=== PATIENT | female | born 1960 | race Caucasian/White ===

== ENCOUNTER 2016-08-28 12:06 | Emergency (ER) | payer BC ==
[~2016-08-28 12:06] MED LIST: *UNABLE2; *UNABLE3; ACCUNEB INH; ADVAIR INH; ADVAIR250 INH; ADVIL PO; ALBUTEROL5 INH; ASAB PO; AUG875 PO; BACDS PO; BACLOFEN20 MG PO; BUDESONIDE INH; BUSPAR15 M1 PO; CENTRUM PO; COZ50 PO; CYMBALTA60 PO; DEPAKOTEER PO; DSS PO; DUONEB INH; ENDOCET1 TA3 PO; FERRETTS325 MG PO; FLORASTOR250 MG PO; GOODY'S EX-STR1 EAC1 PO; GOODYS PM1 POW PO; GRALISE600 MG PO; HABIT21 TOP; INHALER RX; INTERFERON SC; KDUR10 PO; KDUR20 PO; KLOR-CON 1010 MEQ PO; KLOR-CON M2020 MEQ PO; L20 PO; LASIX; LEVAQUIN750 MG PO; LIOR10 PO; LIPITOR40 PO; LISINOPRIL40 MG PO; LOP25 PO; LORT7 PO; LOTE20 PO; LOTENSIN; LYRICA150 MG PO; LYRICA300 MG PO; MEDROL; MELA3 PO; METHYLPREDNISOLONE; MIRALAXPKT PO; MONODOX100 MG PO; MSCONT15 PO; MUCINEX600 MG PO; MVI PO; NEUR300 PO; NEUR800 PO; NEXIUM40 PO; NICODERM C14 MG/24 H TOP; NICODERM C21 MG/241 TOP; NITROSTAT0.4 MG SL; NORCO1 TA2 PO; NORV10 PO; NORV5 PO; OXYCOD PO; OXYIR5 MG PO; P10 PO; P20 PO; PCET PO; PERCOCET1 TA4 PO; PERCOCET1 TA5 PO; PLAVIX PO; POTASSIUM; POTASSIUM PO; PRILOSEC40 MG PO; PRIN10 PO; PRIN20 PO; PRISTIQ50 MG PO; PROAIR HFA INH; PROTONIX PO; PROVENTSOL INH; PROVHFA INH; PROVHFA PO; PROZAC PO; PROZAC40 MG PO; PULRESP.5 INH; REBI1 SC; REBIF; SEROQUEL50 MG PO; SPIRIVA INH; STERAPDS12 PO; SYMBICORT 160/41 INH INH; T200 PO; TRILEP150 PO; TRILEP300 PO; TYLENOL ARTH650 MG PO; V5 PO; VALIUM10 MG PO; VITAMIN K; VITAMIN K IM; VITD PO; VOLTAREN1 % TOP; ZANTAC 150 PO; ZITH250 PO; ZOCOR20 PO
[2016-08-28 12:19] LABS: ALLENS TEST Pos; BE (BASE EXCESS) 2.7 MEQ/L (0 +/- 2.5); CARBOXYHEMOGLOBIN 4.6 % (0-3); DEVICE NC; HCO3 (ACTUAL BICARBONATE) 20.5 MEQ/L (23-27); HEMOBLOGIN CONTENT 15.1 G/DL (12-16); INSTRUMENT SERIAL # 8087; METHEMOGLOBIN 0.1 % (0-3); PCO2 (CO2 TENSION) 19 MMHG (35-45); PO2 (O2 TENSION) 94 MMHG (79-93); SAMPLE Arterial; pH 7.66 (7.37-7.43)
[2016-08-28 12:32] LABS: BASOPHILS 0.5 %; BASOPHILS ABSOLUTE 0.04 10/3/uL (0.0-0.16); EOSINOPHILS 1.6 %; EOSINOPHILS ABSOLUTE 0.12 10/3/uL (0.0-0.53); ER CBC TAT 0 Hrs 03 Mins; HEMOGLOBIN 14.4 g/dL (12.0-16.0); IMMATURE GRANULOCYTES 0.3 %; IMMATURE GRANULOCYTES ABSOLUTE 0.02 10/3/uL (0.0-0.11); LYMPHOCYTES 17.7 %; LYMPHOCYTES ABSOLUTE 1.29 10/3/uL (0.67-4.30); MEAN CORPUS HGB CONC 33.1 g/dL (32.0-36.0); MEAN CORPUSCULAR HEMOGLOB 27.7 pg (26.0-34.0); MEAN CORPUSCULAR VOLUME 83.8 fL (80-100); MEAN PLATELET VOLUME 9.7 fL (9.2-13.0); MONOCYTES 4.9 %; MONOCYTES ABSOLUTE 0.36 10/3/uL (0.21-1.20); NEUTROPHILS ABSOLUTE 5.46 10/3/uL (2.02-8.40); PLATELET COUNT 297 10/3/uL (150-400); RBC DISTRIBUTION WIDTH 18.1 % (12.0-16.0); RED CELL COUNT 5.19 10/6/uL (4.0-5.6); WHITE BLOOD CELLS 7.3 10/3/uL (4.5-10.5)
[2016-08-28 12:33] LABS: HEMATOCRIT 43.5 % (36.0-48.0); MANUAL DIFF NO %
[2016-08-28 12:48] LABS: A/G RATIO 0.7 (0.7-1.9); ALBUMIN 3.1 G/DL (3.5-5.0); ALKALINE PHOSPHATASE 131 U/L (45-117); CALCIUM, SERUM 8.8 MG/DL (8.5-10.4); CHLORIDE, SERUM 104 MMOL/L (96-112); CREATININE 0.61 MG/DL (0.55-1.02); GFR AFRICAN AMERICAN 117 ML/MIN (>=60); GFR NON AFRICAN AMERICAN 101 ML/MIN (>=60); GLOBULIN 4.7 G/DL (2.5-4.1); POTASSIUM, SERUM 3.5 MMOL/L (3.5-5.3); SGOT(AST) 18 U/L (5-40); SGPT(ALT) 15 U/L (5-65); SODIUM, SERUM 141 MMOL/L (135-148); TOTAL BILIRUBIN 0.4 MG/DL (0-1.2); TOTAL PROTEIN 7.8 G/DL (6.0-8.5)
[2016-08-28 12:51] LABS: BUN (BLOOD UREA NITROGEN) 6 MG/DL (6-23); CO2 (CARBON DIOXIDE) 22 MMOL/L (24-34); GLUCOSE, SERUM 120 MG/DL (60-99)
[2016-08-28 13:13] LABS: LACTATE 3.7 MMOL/L (0.3-2.4)
[2016-08-28 13:16] LABS: PROCALCITONIN <0.05 ng/mL (<0.5)
[2016-08-28 13:18] LABS: INFLUENZA A SCREEN NEGATIVE (NEGATIVE); INFLUENZA B SCREEN NEGATIVE (NEGATIVE)
[2017-01-19] MEDS ORDERED: VALIUM10 MG PO (09:04)
[2017-01-19] MEDS ORDERED: LEVAQUIN750 MG PO (09:05)
[2017-03-03] MEDS ORDERED: MSCONT15 PO (15:52)
[2017-03-03] MEDS ORDERED: OXYCOD PO (15:53)
[2017-03-03] MEDS ORDERED: V5 PO (15:53)
[2017-03-03] MEDS ORDERED: SINGULAIR1 PO (15:54)
[2017-03-03] MEDS ORDERED: NEUR800 PO (15:54)
[2017-03-03] MEDS ORDERED: LIPITOR40 PO (15:54)
[2017-03-03] MEDS ORDERED: HALF81 PO (15:54)
[2017-03-03] MEDS ORDERED: PROZAC40 MG PO (15:55)
[2017-03-03] MEDS ORDERED: BACDS PO (15:55)
[2017-03-03] MEDS ORDERED: P10 PO (15:55)
[2017-03-03] MEDS ORDERED: PLAVIX PO (15:56)
== END 2016-08-28 15:25 | disposition home or self-care (01) ==
LOC: ER 12:06
PROVIDERS: Hospitalist
DX: F41.0 Panic disorder [episodic paroxysmal anxiety] (principal); I11.0 Hypertensive heart disease with heart failure; I50.9 Heart failure, unspecified; I25.2 Old myocardial infarction; J44.9 Chronic obstructive pulmonary disease, unspecified; F32.9 Major depressive disorder, single episode, unspecified; F41.9 Anxiety disorder, unspecified; D64.9 Anemia, unspecified; F17.200 Nicotine dependence, unspecified, uncomplicated; Z88.8 Allergy status to other drugs, medicaments and biological substances; Z88.5 Allergy status to narcotic agent; Z79.82 Long term (current) use of aspirin; Z79.899 Other long term (current) drug therapy
CPT/HCPCS: 36600; 71010; 80053; 82805; 83605; 84145; 85025; 87040; 87070; 87205; 87804; 93005; 94640; 96372; 96374; 99285; A9270-GY; J2930; J3410

== ENCOUNTER 2016-11-04 10:27 | Emergency (ER) | payer BC ==
[2016-11-04 10:07] LABS: BE (BASE EXCESS) 1.7 MEQ/L (0 +/- 2.5); CARBOXYHEMOGLOBIN 1.7 % (0-3); HCO3 (ACTUAL BICARBONATE) 21.3 MEQ/L (23-27); HEMOBLOGIN CONTENT 14.4 G/DL (12-16); INSTRUMENT SERIAL # 8087; METHEMOGLOBIN 0.2 % (0-3); O2 CONTENT 19.6 VOL% (18-24); PCO2 (CO2 TENSION) 22 MMHG (35-45); PO2 (O2 TENSION) 93 MMHG (79-93); SAMPLE Arterial
[2016-11-04 10:08] LABS: ALLENS TEST Pos; DEVICE NC
[2016-11-04 10:27] LABS: BASOPHILS 0.5 %; BASOPHILS ABSOLUTE 0.03 10/3/uL (0.0-0.16); EOSINOPHILS 1.6 %; ER CBC TAT 0 Hrs 07 Mins; HEMATOCRIT 41.4 % (36.0-48.0); IMMATURE GRANULOCYTES 0.5 %; IMMATURE GRANULOCYTES ABSOLUTE 0.03 10/3/uL (0.0-0.11); LYMPHOCYTES 13.1 %; LYMPHOCYTES ABSOLUTE 0.84 10/3/uL (0.67-4.30); MANUAL DIFF NO %; MEAN CORPUS HGB CONC 33.8 g/dL (32.0-36.0); MEAN CORPUSCULAR HEMOGLOB 29.4 pg (26.0-34.0); MEAN PLATELET VOLUME 10.2 fL (9.2-13.0); MONOCYTES 6.1 %; MONOCYTES ABSOLUTE 0.39 10/3/uL (0.21-1.20); NEUTROPHILS 78.2 %; NEUTROPHILS ABSOLUTE 5.01 10/3/uL (2.02-8.40); PLATELET COUNT 272 10/3/uL (150-400); RBC DISTRIBUTION WIDTH 14.5 % (12.0-16.0); RED CELL COUNT 4.76 10/6/uL (4.0-5.6); WHITE BLOOD CELLS 6.4 10/3/uL (4.5-10.5)
[2016-11-04 10:58] LABS: BUN (BLOOD UREA NITROGEN) 9 MG/DL (6-23); CALCIUM, SERUM 9.3 MG/DL (8.5-10.4); CHLORIDE, SERUM 107 MMOL/L (96-112); CO2 (CARBON DIOXIDE) 29 MMOL/L (24-34); CREATININE 0.53 MG/DL (0.55-1.02); GFR AFRICAN AMERICAN 122 ML/MIN (>=60); GFR NON AFRICAN AMERICAN 105 ML/MIN (>=60); GLUCOSE, SERUM 122 MG/DL (60-99); POTASSIUM, SERUM 3.8 MMOL/L (3.5-5.3); SODIUM, SERUM 142 MMOL/L (135-148)
[2017-01-19] MEDS ORDERED: VALIUM10 MG PO (09:04)
[2017-01-19] MEDS ORDERED: LEVAQUIN750 MG PO (09:05)
[2017-03-03] MEDS ORDERED: MSCONT15 PO (15:52)
[2017-03-03] MEDS ORDERED: V5 PO (15:53)
[2017-03-03] MEDS ORDERED: OXYCOD PO (15:53)
[2017-03-03] MEDS ORDERED: SINGULAIR1 PO (15:54)
[2017-03-03] MEDS ORDERED: HALF81 PO (15:54)
[2017-03-03] MEDS ORDERED: LIPITOR40 PO (15:54)
[2017-03-03] MEDS ORDERED: NEUR800 PO (15:54)
[2017-03-03] MEDS ORDERED: BACDS PO (15:55)
[2017-03-03] MEDS ORDERED: P10 PO (15:55)
[2017-03-03] MEDS ORDERED: PROZAC40 MG PO (15:55)
[2017-03-03] MEDS ORDERED: PLAVIX PO (15:56)
== END 2016-11-04 11:40 | disposition home or self-care (01) ==
LOC: ER 10:27
PROVIDERS: Emergency Medicine
DX: F41.9 Anxiety disorder, unspecified (principal); D64.9 Anemia, unspecified; J44.9 Chronic obstructive pulmonary disease, unspecified; Z86.73 Personal history of transient ischemic attack (TIA), and cerebral infarction without residual deficits; Z95.0 Presence of cardiac pacemaker; Z88.5 Allergy status to narcotic agent; Z79.82 Long term (current) use of aspirin
CPT/HCPCS: 36600; 71010; 80048; 82805; 85025; 93005; 94640; 96374; 99284; J2550

== ENCOUNTER 2016-11-13 19:45 | Emergency (ER) | payer BC ==
[2017-01-19] MEDS ORDERED: VALIUM10 MG PO (09:04)
[2017-01-19] MEDS ORDERED: LEVAQUIN750 MG PO (09:05)
[2017-03-03] MEDS ORDERED: MSCONT15 PO (15:52)
[2017-03-03] MEDS ORDERED: OXYCOD PO (15:53)
[2017-03-03] MEDS ORDERED: V5 PO (15:53)
[2017-03-03] MEDS ORDERED: NEUR800 PO (15:54)
[2017-03-03] MEDS ORDERED: HALF81 PO (15:54)
[2017-03-03] MEDS ORDERED: SINGULAIR1 PO (15:54)
[2017-03-03] MEDS ORDERED: LIPITOR40 PO (15:54)
[2017-03-03] MEDS ORDERED: PROZAC40 MG PO (15:55)
[2017-03-03] MEDS ORDERED: BACDS PO (15:55)
[2017-03-03] MEDS ORDERED: P10 PO (15:55)
[2017-03-03] MEDS ORDERED: PLAVIX PO (15:56)
== END 2016-11-13 19:58 | disposition home or self-care (01) ==
LOC: ER 19:45
PROC: 2W3QX1Z Immobilization of Right Lower Leg using Splint (ICD-10-PCS; principal; 2016-11-13)
DX: S82.51XA Displaced fracture of medial malleolus of right tibia, initial encounter for closed fracture (principal); I10 Essential (primary) hypertension; J44.9 Chronic obstructive pulmonary disease, unspecified; G35 Multiple sclerosis; M81.0 Age-related osteoporosis without current pathological fracture; Z87.891 Personal history of nicotine dependence; Z88.5 Allergy status to narcotic agent; Z88.8 Allergy status to other drugs, medicaments and biological substances; Z79.82 Long term (current) use of aspirin; Z79.899 Other long term (current) drug therapy; X58.XXXA Exposure to other specified factors, initial encounter
CPT/HCPCS: 73610-RT; 99283

== ENCOUNTER 2016-11-20 20:56 | Inpatient (IN) | payer BC ==
--- NOTE | ~2016-11-20 | IDS ---
Interim Discharge Summary [facility] [address] [place]. [address] NAME: KEYLA KOROMA : 58 STATUS : ADM IN [facility]#: [id number] AGE: 56 ADM/REG DATE : 11/20/16 MR#: [id number] REPORT SERV DATE: 11/26/16 DICTATED BY: KENAN TERRAZAS DATE: 11/26/16 REPORT STATUS : Draft TRANSCRIBED BY: MODL DATE: 11/26/16 ADMISSION DATE: 11/20/2016 DISCHARGE DATE: DATE OF SUMMARY: 11/26/2016. The patient has severe COPD, acute respiratory failure, hypertension, chronic pain syndrome, polysubstance, history of conversion disorder in the past, diastolic heart failure, non STEMI in 2016, and drug-eluting stent to the RCA. She has had bradycardia with subsequent pacemaker placement. Previous DVT, von Willebrand disease on aspirin and Plavix. Currently, she is off the ventilator. Awake, alert , and responsive. Prednisone is now on 20. Her H and H are 11.8 and 36.7, white count is 9400, platelet count 231,000, sodium 139, potassium 4.2, chloride 102, CO2 of 34, BUN 17, creatinine 0.3, and glucose 88. MEDICATIONS: Plavix, Colace, Lovenox subcu, Prozac, Neurontin, Lopressor 25, MS Contin 15 p.o. b.i.d., oxycodone 10 mg p.o. q.6, Protonix 40, Deltasone 20. She is also on aspirin 81. ALLERGIES: SHE IS ALLERGIC TO CODEINE, LAMICTAL, ADVERSE DRUG REACTIONS FROM LORAZEPAM AND CLONAZEPAM. IRLANDA/DAVID Kenan Terrazas M.D. / [id number] CC: Susana Tan M.D.
--- NOTE | ~2016-11-20 | DS ---
Discharge Summary [id number] [place]. [address] NAME: KEYLA KOROMA : 58 STATUS : DIS IN PAT#: [id number] AGE: 56 ADM/REG DATE : 11/20/16 MR#: [id number] REPORT SERV DATE: 12/01/16 DICTATED BY: QAUILES SALCIDO DATE: 11/30/16 REPORT STATUS : Draft TRANSCRIBED BY: MODL DATE: 11/30/16 ADMISSION DATE: 11/20/2016 DISCHARGE DATE: 11/27/2016 DISCHARGE DIAGNOSES: 1. Acute respiratory failure. 2. Severe chronic obstructive pulmonary disease, chronic O2 from 5 L at baseline. The patient was actually weaned down to 3 L at time of discharge. 3. Hypertension. 4. Diastolic heart failure, chronic. 5. Chronic pain dependence and use. DISCHARGE MEDICATIONS: 1. Aspirin 81 mg one tab p.o. daily. 2. Atorvastatin 40 mg one tab p.o. at bedtime. 3. Plavix 75 mg one tab p.o. daily. 4. Cyiv-oqd-rlkrobk Colace 100 mg one tab p.o. b.i.d. 5. Prozac 40 mg one tab p.o. b.i.d. 6. Gabapentin 800 mg one tab p.o. t.i.d. 7. The patient's home morphine, MS Contin 15 mg one tab p.o. q.12 hours. 8. Metoprolol 25 mg one tab p.o. b.i.d. 9. Roxicodone 10 mg one tab p.o. four times a day home dose. 10.Prednisone 20 mg one tab p.o. x3 days, then return to home dose of 10 mg. 11.Pulmicort 0.5 mg inhalation b.i.d. 12.Atrovent one nebulized inhalation four times a day. HOSPITAL COURSE: Please see H and P for complete details of HPI. Additionally, see interim course by Dr. Terrazas for ICU course. The patient was transferred out of ICU on 11/26/2016 and seen by this telegraphic typewriter repairer on 11/27/2016, for resumption of care after which time patient prompt requesting her discharge. Repeat chest x-ray showed improving CHF changes. Clinically, the patient reported that she felt significantly better, was actually on improved O2 saturations and previously at home. The patient does have a long history of severe COPD, acute respiratory failure, hypertension, chronic pain and polysubstance abuse with history of conversion disorder, diastolic heart failure, prior DVT with von Willebrand's disease, who presented in respiratory failure requiring mechanical intubation with mechanical ventilator support. The patient was able to be given respiratory rest with improvement in respiratory status with multiple issues of COPD, CHF, and polypharmacy at home. The patient did have continued improvement and was feeling actually better than her baseline by time of discharge. However, due to her recent leg injury which she keeps leg in boot, she was requesting to go home to be with her family. Hospital course was discussed with the patient, who understands and reports that she will follow up with PCP for additional requirements in one week for BMP and chest x-ray. She additionally will follow with Dr. Rivera in two months, as he has seen the patient inpatient and would like to establish care with Dr. Rivera. Discharge Summary [address] [address] NAME: KEYLA KOROMA : 58 STATUS : DIS IN PAT#: [id number] AGE: 56 ADM/REG DATE : 11/20/16 MR#: [id number] REPORT SERV DATE: 12/01/16 DICTATED BY: AQUILES SALCIDO DATE: 11/30/16 REPORT STATUS : Draft TRANSCRIBED BY: DAVID DATE: 11/30/16 DICTATED BY: MD LA NENA Anderson/DAVID Aquiles Salcido MD / [id number] CC: MD Ines Anderson M.D.
--- NOTE | ~2016-11-20 | IDS ---
Interim Discharge Summary [facility] [address] [place]. [address] NAME: KEYLA KOROMA : 58 STATUS : ADM IN [facility]#: [id number] AGE: 56 ADM/REG DATE : 11/20/16 MR#: [id number] REPORT SERV DATE: 11/26/16 DICTATED BY: KENAN TERRAZAS DATE: 11/26/16 REPORT STATUS : Draft TRANSCRIBED BY: MODL DATE: 11/26/16 ADMISSION DATE: 11/20/2016 DISCHARGE DATE: Date of discharge from the ICU 11/26/2016. DISCHARGE DIAGNOSES: 1. Acute on chronic respiratory failure. 2. Chronic obstructive pulmonary disease on chronic oxygen therapy. 3. Obstructive sleep apnea. 4. Previous history of bradycardia requiring pacemaker. 5. Non-ST elevation myocardial infarction in June 2016 with drug-eluting stent. 6. Migraines. 7. Restless legs syndrome. I note that she had required intubation and mechanical ventilation and was able to wean off mechanical ventilator. Troponins are normal this time. She continued to have chronic pain syndrome, diastolic CHF, and severe COPD. LABORATORY DATA: Laboratory values show an H and H of 11.8 and 36.7. White count 9400, platelet count 231,000. Electrolytes are normal. Chest x-ray was improved. PLAN: Continue her present therapies. Swallow study to be done. CURRENT MEDICATIONS: Aspirin 81 mg p.o. daily, Catapres patch 0.2 mg q.7 days, Plavix 75 mg p.o. daily, Colace 100 mg p.o. daily, Lovenox subcu 40 mg subcu every 24 hours, Prozac 40 mg p.o. b.i.d., Neurontin 800 mg p.o. q.8 hours, level 2 NovoLog injection, and Lipitor 40 mg p.o. daily. ALLERGIES: SHE IS ALLERGIC TO CODEINE AND LAMICTAL, AND SHE HAS ADVERSE DRUG REACTIONS FROM LORAZEPAM AND CLONAZEPAM. PHYSICAL EXAMINATION: VITAL SIGNS: Her vital signs today show blood pressure of 116/70, pulse 68, temperature 98.4, sat is 100% on 36%. Weight is 62.7 kilos. IRLANDA/DAVID Kenan Terrazas M.D. / [id number] CC: Interim Discharge Summary [address] [address] NAME: KEYLA KOROMA : 58 STATUS : ADM IN PAT#: [id number] AGE: 56 ADM/REG DATE : 11/20/16 MR#: [id number] REPORT SERV DATE: 11/26/16 DICTATED BY: KENAN TERRAZAS DATE: 11/26/16 REPORT STATUS : Draft TRANSCRIBED BY: MODL DATE: 11/26/16 Fern Mackay M.D.
--- NOTE | ~2016-11-20 | HP ---
History And Physical [id number] [facility] [place]. [address] NAME: KEYLA KOROMA : 58 STATUS : ADM IN PAT#: [id number] AGE: 56 ADM/REG DATE : 11/20/16 MR#: [id number] REPORT SERV DATE: 11/21/16 DICTATED BY: CELINA MACKAY DATE: 11/21/16 REPORT STATUS : Draft TRANSCRIBED BY: MODQuin DATE: 11/21/16 DATE OF ADMISSION: 11/20/2016 HISTORY OF PRESENT ILLNESS: This is a 56-year-old patient, well-known to our service in the Hospitalist Service as severe COPD, comes in with frequent exacerbations and requires intubation on multiple occasions. She has had a previous trach as well. Code status is always of question and has been DNR in the past, but currently is full code. The patient has been offered hospice during her last hospitalization here and declined and actually signed out against medical advice. Today, she presents with increasing shortness of breath and agitation, was evaluated in the emergency room and then subsequently intubated for extreme respiratory distress. It appears that her symptoms of shortness of breath have been constant for at least three days. There has been a cough, but no associated fever or chills. Wheezing has been present. The patient continues to smoke. She then was subsequently transferred to the ICU for further care and management. ALLERGIES: CODEINE CAUSES SWELLING, HIVES, AND ITCHING; LAMICTAL CAUSES HIVES AND RASH; LORAZEPAM CAUSES HALLUCINATION AND COMBATIVE BEHAVIOR; KLONOPIN, THE SAME; AND ANTIHISTAMINE CAUSES THE HEART TO RACE AND ITCHING. HOME MEDICATIONS: Include aspirin 81 mg p.o. daily, Lipitor 40 mg at bedtime, Pulmicort Respules twice daily, Plavix 75 mg daily, Prozac 40 mg twice daily, Neurontin 800 mg t.i.d., ipratropium bromide nebulizer q.4 times daily, Lopressor 25 mg b.i.d., morphine/MS Contin 15 mg q.12 hours, oxycodone 10 mg four times daily, Deltasone 10 mg daily. PAST MEDICAL HISTORY: Significant for: 1. Severe COPD, on chronic O2 at home at 4 L. Smoking ongoing. 2. Obstructive sleep apnea, not compliant with BiPAP. 3. Depression and anxiety. 4. Chronic pain. 5. DJD. 6. Hypertension. 7. Diastolic CHF. 8. Iron deficiency. 9. Polysubstance abuse. 10.Conversion disorder. 11.Right ankle fracture in January 2016 status post repair. 12.Right tib-fib fracture that was repaired at the same time. 13.MS. 14.Restless legs syndrome. 15.Migraines. 16.CVA x2. 17.Previous DVT. 18.History of von Willebrand disease. 19.Bradycardia requiring dual-chamber pacemaker. 20.Previous trach. 21.Non-STEMI in June 2016 status post cath with drug-eluting stent to the RCA. History And Physical [address] [place]. [address] NAME: KEYLA KOROMA : 58 STATUS : ADM IN [facility]#: [id number] AGE: 56 ADM/REG DATE : 11/20/16 MR#: [id number] REPORT SERV DATE: 11/21/16 DICTATED BY: CEILNA MACKAY DATE: 11/21/16 REPORT STATUS : Draft TRANSCRIBED BY: DAVID DATE: 11/21/16 22.Hospice offered to the patient in August 2016, was declined and the patient signed out against medical advice. FAMILY HISTORY: Significant for COPD. SOCIAL HISTORY: The patient has been smoking since the age of 11 and continues to smoke despite frequent discussions with her about cessation of smoking, except especially in the setting of a drug-eluting stent. She has been for 40 years, lives with her and has a son. She did smoke at least three packs a day, now apparently only smokes half a pack a day. No history of illicit drug use or alcohol and does not use any recreational drugs. REVIEW OF SYSTEMS: Could not be obtained from the patient since she is orally intubated and sedated. PHYSICAL EXAMINATION: GENERAL: The patient is in no apparent distress. VITAL SIGNS: Her blood pressure is 92/59, respiratory rate is 19 on a rate of 10, temperature is 97.9, heart rate is 71. SKIN: Warm and dry. HEENT: Head is atraumatic and normocephalic. Pupils are sluggishly reactive. Sclerae anicteric. Conjunctivae are pink. Nasal mucosa is within normal limits. Oral mucosa is moist. Tongue is midline. Oral mucosa is intubated. NECK: Supple without JVD, lymphadenopathy, or thyromegaly. LUNGS: Distant to auscultation with prolonged expiratory phase. No wheezing is heard at this time. CARDIAC: Reveals a regular rate and rhythm with a soft 2/6 systolic murmur heard at the left sternal border. BREASTS: Symmetrical without masses. ABDOMEN: Nondistended. Bowel sounds are diminished, but present. It is soft to palpation. There is no pain elicited to deep palpation. Meyers catheter is in place. The patient has normal female external genitalia. RECTAL: Deferred. EXTREMITIES: Without cyanosis, clubbing, or edema. Pulses are palpable and symmetrical, although slightly diminished in the dorsalis pedis pulses. NEUROLOGIC: Cranial nerves II through XII are grossly intact. Motor and sensory are intact. The patient has no focal findings on her physical exam. LABORATORY DATA: Most recent ABG shows a pH of 7.35, pCO2 of 39, pO2 of 143, bicarbonate of 21. Troponin is less than 0.02. Sodium 140, potassium 4.1, chloride 108, bicarbonate 24, BUN 10, creatinine 0.57, glucose 114, magnesium 2.2. Troponin less than 0.02. White cell count is 6.3, hemoglobin 13, hematocrit 39, platelet count is 293,000. PTT is 29.2, INR is 1.0. EKG shows normal sinus rhythm. ASSESSMENT AND PLAN: This is a 56-year-old patient with: 1. Known history of chronic obstructive pulmonary disease, frequent intubation, exacerbation of chronic obstructive pulmonary disease, ongoing smoking, who again is History And Physical [address] [address] NAME: KEYLA KOROMA : 58 STATUS : ADM IN [facility]#: [id number] AGE: 56 ADM/REG DATE : 11/20/16 MR#: [id number] REPORT SERV DATE: 11/21/16 DICTATED BY: CELINA MACKAY DATE: 11/21/16 REPORT STATUS : Draft TRANSCRIBED BY: DAVID DATE: 11/21/16 intubated and still is a full code. The plan will be to continue ventilatory support for at least overnight possible extubation later tomorrow. Continue steroids and bronchodilators. Check a sputum for Gram stain and culture. I do not believe antibiotics are needed at this time. We will check a procalcitonin. 2. Known coronary artery disease, status post drug-eluting stent placement earlier this year. Continue Plavix, aspirin, and check troponin, cardiac enzymes q.8h. x2. 3. Hypertension is stable. Hold Lopressor for blood pressure less than 100 and heart rate less than 60. 4. Known diastolic dysfunction, which is stable. 5. Polysubstance abuse and chronic pain medicine. We will need adequate sedation. We will continue most of her pain medications from home to avoid withdrawal. 6. History of von Willebrand disease, which is stable. 7. Bradycardia with placement of dual-chamber pacemaker, which is stable. Consider interrogation if needed. 8. History of deep vein thrombosis, not actively on anticoagulation at this time, but we will place the patient on Lovenox for deep vein thrombosis prophylaxis. Gastrointestinal prophylaxis will be provided with Protonix. Since the patient will be continued on steroids, we will place the patient on a sliding insulin scale. The patient is in critical condition and is at risk for cardiac deterioration and further respiratory deterioration. The patient will need frequent vent manipulations, volume resuscitation, and review of lab work. Critical care time commenced on this patient at 2320 hours and ended at midnight for a total of 40 minutes of critical care time. /MODL Celina Mackay M.D. / [id number] CC: Susana Tan M.D.
[2016-11-20 18:04] LABS: BASOPHILS 0.6 %; BASOPHILS ABSOLUTE 0.04 10/3/uL (0.0-0.16); EOSINOPHILS 5.9 %; EOSINOPHILS ABSOLUTE 0.37 10/3/uL (0.0-0.53); HEMATOCRIT 39.7 % (36.0-48.0); HEMOGLOBIN 13.3 g/dL (12.0-16.0); IMMATURE GRANULOCYTES 0.3 %; IMMATURE GRANULOCYTES ABSOLUTE 0.02 10/3/uL (0.0-0.11); LYMPHOCYTES 19.3 %; LYMPHOCYTES ABSOLUTE 1.22 10/3/uL (0.67-4.30); MEAN CORPUS HGB CONC 33.5 g/dL (32.0-36.0); MEAN CORPUSCULAR HEMOGLOB 29.4 pg (26.0-34.0); MEAN CORPUSCULAR VOLUME 87.6 fL (80-100); MEAN PLATELET VOLUME 9.5 fL (9.2-13.0); MONOCYTES 5.7 %; MONOCYTES ABSOLUTE 0.36 10/3/uL (0.21-1.20); NEUTROPHILS 68.2 %; PLATELET COUNT 293 10/3/uL (150-400); RBC DISTRIBUTION WIDTH 14.5 % (12.0-16.0); RED CELL COUNT 4.53 10/6/uL (4.0-5.6); WHITE BLOOD CELLS 6.3 10/3/uL (4.5-10.5)
[2016-11-20 18:05] LABS: MANUAL DIFF NO %
[2016-11-20 18:13] LABS: PARTIAL THROMBO TIME 29.2 SEC (22.5-37.2); PROTIME (NOT ORD) 13.5 SEC (12.0-14.5)
[2016-11-20 18:20] LABS: BUN (BLOOD UREA NITROGEN) 10 MG/DL (6-23); CALCIUM, SERUM 8.9 MG/DL (8.5-10.4); CHEST PAIN PROFILE TAT 0 Hrs 20 Mins; CHLORIDE, SERUM 108 MMOL/L (96-112); CO2 (CARBON DIOXIDE) 24 MMOL/L (24-34); CREATININE 0.57 MG/DL (0.55-1.02); GFR AFRICAN AMERICAN 119 ML/MIN (>=60); GFR NON AFRICAN AMERICAN 103 ML/MIN (>=60); GLUCOSE, SERUM 114 MG/DL (60-99); POTASSIUM, SERUM 4.1 MMOL/L (3.5-5.3); SODIUM, SERUM 140 MMOL/L (135-148); TROPONIN I <0.02 NG/ML (<0.05)
[2016-11-20] MEDS ORDERED: LOP25 PO (21:08)
[2016-11-20] MEDS ORDERED: PROZAC40 MG PO (21:08)
[2016-11-20] MEDS ORDERED: PLAVIX PO (21:09)
[2016-11-20] MEDS ORDERED: NEUR800 PO (21:09)
[2016-11-20] MEDS ORDERED: P10 PO (21:09)
[2016-11-20] MEDS ORDERED: OXYCOD PO (21:09)
[2016-11-20] MEDS ORDERED: LIPITOR40 PO (21:09)
[2016-11-20] MEDS ORDERED: MSCONT15 PO (21:10)
[2016-11-20] MEDS ORDERED: PULRESP.5 INH (21:10)
[2016-11-20] MEDS ORDERED: HALF81 PO (21:10)
[2016-11-20] MEDS ORDERED: ATROVENTUD INH (21:10)
[2016-11-20 23:36] LABS: TROPONIN I <0.02 NG/ML (<0.05)
[2016-11-21 01:01] LABS: PROCALCITONIN <0.05 ng/mL (<0.5)
[2016-11-21 03:25] LABS: ALLENS TEST Pos; BE (BASE EXCESS) -3.7 MEQ/L (0 +/- 2.5); CARBOXYHEMOGLOBIN 0.8 % (0-3); HCO3 (ACTUAL BICARBONATE) 21.6 MEQ/L (23-27); HEMOBLOGIN CONTENT 12.8 G/DL (12-16); INSTRUMENT SERIAL # 8083; METHEMOGLOBIN 0.3 % (0-3); MODE CMV; O2 CONTENT 17.8 VOL% (18-24); OPERATOR ID 33449; PCO2 (CO2 TENSION) 40 MMHG (35-45); PO2 (O2 TENSION) 143 MMHG (79-93); SAMPLE Arterial; TIDAL VOLUME 450 ML; pH 7.35 (7.37-7.43)
[2016-11-21 03:26] LABS: ALLENS TEST Pos; BE (BASE EXCESS) -0.1 MEQ/L (0 +/- 2.5); CARBOXYHEMOGLOBIN 2.1 % (0-3); DEVICE NC; HCO3 (ACTUAL BICARBONATE) 22.8 MEQ/L (23-27); HEMOBLOGIN CONTENT 13.3 G/DL (12-16); INSTRUMENT SERIAL # 8087; METHEMOGLOBIN 0.1 % (0-3); O2 CONTENT 18.4 VOL% (18-24); OPERATOR ID 16469; PCO2 (CO2 TENSION) 32 MMHG (35-45); PO2 (O2 TENSION) 159 MMHG (79-93); SAMPLE Arterial; pH 7.47 (7.37-7.43)
[2016-11-21 03:58] LABS: BE (BASE EXCESS) -2.1 MEQ/L (0 +/- 2.5); CARBOXYHEMOGLOBIN 0.5 % (0-3); HCO3 (ACTUAL BICARBONATE) 24.7 MEQ/L (23-27); HEMOBLOGIN CONTENT 11.9 G/DL (12-16); INSTRUMENT SERIAL # 8083; METHEMOGLOBIN 0.3 % (0-3); MODE CMV; O2 CONTENT 16.6 VOL% (18-24); OPERATOR ID 16469; PCO2 (CO2 TENSION) 51 MMHG (35-45); PO2 (O2 TENSION) 133 MMHG (79-93); SAMPLE Arterial; TIDAL VOLUME 450 ML
[2016-11-21 06:58] LABS: BASOPHILS 0 %; EOSINOPHILS 0 %; HEMATOCRIT 31.9 % (36.0-48.0); HEMOGLOBIN 10.5 g/dL (12.0-16.0); IMMATURE GRANULOCYTES 0.4 %; IMMATURE GRANULOCYTES ABSOLUTE 0.02 10/3/uL (0.0-0.11); LYMPHOCYTES 7.7 %; LYMPHOCYTES ABSOLUTE 0.35 10/3/uL (0.67-4.30); MANUAL DIFF NO %; MEAN CORPUS HGB CONC 32.9 g/dL (32.0-36.0); MEAN CORPUSCULAR HEMOGLOB 28.9 pg (26.0-34.0); MEAN CORPUSCULAR VOLUME 87.9 fL (80-100); MEAN PLATELET VOLUME 9.3 fL (9.2-13.0); MONOCYTES 1.3 %; MONOCYTES ABSOLUTE 0.06 10/3/uL (0.21-1.20); NEUTROPHILS 90.6 %; NEUTROPHILS ABSOLUTE 4.13 10/3/uL (2.02-8.40); PLATELET COUNT 225 10/3/uL (150-400); RBC DISTRIBUTION WIDTH 14.7 % (12.0-16.0); RED CELL COUNT 3.63 10/6/uL (4.0-5.6); WHITE BLOOD CELLS 4.6 10/3/uL (4.5-10.5)
[2016-11-21 07:18] LABS: BUN (BLOOD UREA NITROGEN) 9 MG/DL (6-23); CHLORIDE, SERUM 108 MMOL/L (96-112); CO2 (CARBON DIOXIDE) 23 MMOL/L (24-34); CREATININE 0.64 MG/DL (0.55-1.02); FREE T4 1.04 NG/DL (0.76-1.46); GFR AFRICAN AMERICAN 115 ML/MIN (>=60); GFR NON AFRICAN AMERICAN 99 ML/MIN (>=60); GLUCOSE, SERUM 173 MG/DL (60-99); PHOSPHORUS, SERUM 3.7 MG/DL (2.5-4.5); POTASSIUM, SERUM 3.5 MMOL/L (3.5-5.3); SODIUM, SERUM 142 MMOL/L (135-148); TROPONIN I <0.02 NG/ML (<0.05); ULTRASENSITIVE TSH 0.353 MCIU/ML (0.358-3.740)
[2016-11-21 07:59] LABS: PROCALCITONIN <0.05 ng/mL (<0.5)
[2016-11-22 03:37] LABS: BE (BASE EXCESS) 1.3 MEQ/L (0 +/- 2.5); CARBOXYHEMOGLOBIN 0.8 % (0-3); HCO3 (ACTUAL BICARBONATE) 27.7 MEQ/L (23-27); HEMOBLOGIN CONTENT 11.8 G/DL (12-16); INSTRUMENT SERIAL # 8083; METHEMOGLOBIN 0.2 % (0-3); MODE CMV; O2 CONTENT 16.2 VOL% (18-24); PCO2 (CO2 TENSION) 52 MMHG (35-45); PO2 (O2 TENSION) 106 MMHG (79-93); SAMPLE Arterial; TIDAL VOLUME 400 ML; pH 7.35 (7.37-7.43)
[2016-11-22 03:48] LABS: BASOPHILS 0.1 %; BASOPHILS ABSOLUTE 0.01 10/3/uL (0.0-0.16); EOSINOPHILS 0 %; HEMOGLOBIN 11.4 g/dL (12.0-16.0); IMMATURE GRANULOCYTES 0.4 %; IMMATURE GRANULOCYTES ABSOLUTE 0.06 10/3/uL (0.0-0.11); LYMPHOCYTES ABSOLUTE 0.47 10/3/uL (0.67-4.30); MEAN CORPUS HGB CONC 31.6 g/dL (32.0-36.0); MEAN CORPUSCULAR HEMOGLOB 28.5 pg (26.0-34.0); MEAN CORPUSCULAR VOLUME 90.3 fL (80-100); MEAN PLATELET VOLUME 9.5 fL (9.2-13.0); MONOCYTES 3.1 %; MONOCYTES ABSOLUTE 0.48 10/3/uL (0.21-1.20); NEUTROPHILS 93.4 %; NEUTROPHILS ABSOLUTE 14.55 10/3/uL (2.02-8.40); PLATELET COUNT 267 10/3/uL (150-400); RBC DISTRIBUTION WIDTH 15.2 % (12.0-16.0)
[2016-11-22 03:49] LABS: HEMATOCRIT 36.1 % (36.0-48.0); MANUAL DIFF NO %; WHITE BLOOD CELLS 15.6 10/3/uL (4.5-10.5)
[2016-11-22 04:01] LABS: BUN (BLOOD UREA NITROGEN) 9 MG/DL (6-23); CALCIUM, SERUM 8.6 MG/DL (8.5-10.4); CHLORIDE, SERUM 107 MMOL/L (96-112); CREATININE 0.42 MG/DL (0.55-1.02); GFR AFRICAN AMERICAN 132 ML/MIN (>=60); GFR NON AFRICAN AMERICAN 114 ML/MIN (>=60); PHOSPHORUS, SERUM 2.9 MG/DL (2.5-4.5); SODIUM, SERUM 143 MMOL/L (135-148)
[2016-11-22 04:03] LABS: CO2 (CARBON DIOXIDE) 28 MMOL/L (24-34); GLUCOSE, SERUM 121 MG/DL (60-99)
[2016-11-23 03:46] LABS: HEMATOCRIT 35.9 % (36.0-48.0); HEMOGLOBIN 11.3 g/dL (12.0-16.0); MEAN CORPUS HGB CONC 31.5 g/dL (32.0-36.0); MEAN CORPUSCULAR HEMOGLOB 28.8 pg (26.0-34.0); MEAN CORPUSCULAR VOLUME 91.6 fL (80-100); MEAN PLATELET VOLUME 10.2 fL (9.2-13.0); PLATELET COUNT 215 10/3/uL (150-400); RBC DISTRIBUTION WIDTH 15.8 % (12.0-16.0); RED CELL COUNT 3.92 10/6/uL (4.0-5.6); WHITE BLOOD CELLS 13.8 10/3/uL (4.5-10.5)
[2016-11-23 03:47] LABS: MANUAL DIFF YES %
[2016-11-23 03:55] LABS: ALLENS TEST Pos; BE (BASE EXCESS) 3.7 MEQ/L (0 +/- 2.5); CARBOXYHEMOGLOBIN 1.1 % (0-3); HCO3 (ACTUAL BICARBONATE) 30.3 MEQ/L (23-27); INSTRUMENT SERIAL # 8083; METHEMOGLOBIN 0.2 % (0-3); MODE CMV; O2 CONTENT 16.3 VOL% (18-24); OPERATOR ID 17370; PCO2 (CO2 TENSION) 55 MMHG (35-45); PO2 (O2 TENSION) 94 MMHG (79-93); SAMPLE Arterial; TIDAL VOLUME 400 ML; pH 7.36 (7.37-7.43)
[2016-11-23 04:00] LABS: CALCIUM, SERUM 8.5 MG/DL (8.5-10.4); CHLORIDE, SERUM 108 MMOL/L (96-112); CO2 (CARBON DIOXIDE) 32 MMOL/L (24-34); CREATININE 0.44 MG/DL (0.55-1.02); GFR AFRICAN AMERICAN 130 ML/MIN (>=60); GFR NON AFRICAN AMERICAN 112 ML/MIN (>=60); GLUCOSE, SERUM 106 MG/DL (60-99); PHOSPHORUS, SERUM 2.6 MG/DL (2.5-4.5); POTASSIUM, SERUM 4.5 MMOL/L (3.5-5.3); SODIUM, SERUM 142 MMOL/L (135-148)
[2016-11-23 04:02] LABS: BUN (BLOOD UREA NITROGEN) 13 MG/DL (6-23)
[2016-11-23 04:16] LABS: BAND NEUTROPHILS 2 %; LYMPHOCYTES 8 %; MONOCYTES 1 %; MONOCYTES ABSOLUTE (CALC) 0.14 10/3/uL (0.21-1.20); NEUTROPHILS ABSOLUTE (CALC) 12.56 10/3/uL (2.02-8.40); SEGMENTED NEUTROPHIL (0) 89 %; TOTAL NUCLEATED CELLS 100
[2016-11-23 04:17] LABS: PLATELET ESTIMATE ADQ (ADEQUATE); RBC MORPHOLOGY NORM (NORMAL)
[2016-11-23 11:13] LABS: ALBUMIN 3.1 G/DL (3.5-5.0); PREALBUMIN 19.8 MG/DL (17.0-43.0); SGPT(ALT) 17 U/L (5-65); TOTAL BILIRUBIN 0.3 MG/DL (0-1.2); TOTAL PROTEIN 6.5 G/DL (6.0-8.5)
[2016-11-23 11:14] LABS: A/G RATIO 0.9 (0.7-1.9); ALKALINE PHOSPHATASE 94 U/L (45-117); GLOBULIN 3.4 G/DL (2.5-4.1); SGOT(AST) 22 U/L (5-40)
[2016-11-24 04:08] LABS: BASOPHILS 0 %; EOSINOPHILS 0 %; HEMATOCRIT 37.5 % (36.0-48.0); HEMOGLOBIN 11.9 g/dL (12.0-16.0); IMMATURE GRANULOCYTES 0.5 %; IMMATURE GRANULOCYTES ABSOLUTE 0.05 10/3/uL (0.0-0.11); LYMPHOCYTES 6.2 %; LYMPHOCYTES ABSOLUTE 0.68 10/3/uL (0.67-4.30); MANUAL DIFF NO %; MEAN CORPUS HGB CONC 31.7 g/dL (32.0-36.0); MEAN CORPUSCULAR VOLUME 91.2 fL (80-100); MEAN PLATELET VOLUME 9.9 fL (9.2-13.0); MONOCYTES 5.5 %; NEUTROPHILS 87.8 %; NEUTROPHILS ABSOLUTE 9.66 10/3/uL (2.02-8.40); PLATELET COUNT 247 10/3/uL (150-400); RBC DISTRIBUTION WIDTH 15.6 % (12.0-16.0); RED CELL COUNT 4.11 10/6/uL (4.0-5.6)
[2016-11-24 04:25] LABS: BUN (BLOOD UREA NITROGEN) 20 MG/DL (6-23); CALCIUM, SERUM 8.6 MG/DL (8.5-10.4); CHLORIDE, SERUM 100 MMOL/L (96-112); CO2 (CARBON DIOXIDE) 34 MMOL/L (24-34); CREATININE 0.37 MG/DL (0.55-1.02); GFR AFRICAN AMERICAN 137 ML/MIN (>=60); GFR NON AFRICAN AMERICAN 119 ML/MIN (>=60); GLUCOSE, SERUM 112 MG/DL (60-99); PHOSPHORUS, SERUM 2.9 MG/DL (2.5-4.5); POTASSIUM, SERUM 4.3 MMOL/L (3.5-5.3); SODIUM, SERUM 137 MMOL/L (135-148)
[2016-11-24 10:08] LABS: ALLENS TEST Pos; BE (BASE EXCESS) 8.9 MEQ/L (0 +/- 2.5); CARBOXYHEMOGLOBIN 0.9 % (0-3); DEVICE NC; HCO3 (ACTUAL BICARBONATE) 34.5 MEQ/L (23-27); HEMOBLOGIN CONTENT 12.5 G/DL (12-16); INSTRUMENT SERIAL # 8083; METHEMOGLOBIN 0.2 % (0-3); OPERATOR ID 32214; PCO2 (CO2 TENSION) 51 MMHG (35-45); PO2 (O2 TENSION) 94 MMHG (79-93); SAMPLE Arterial; pH 7.45 (7.37-7.43)
[2016-11-25 06:19] LABS: BASOPHILS 0.1 %; BASOPHILS ABSOLUTE 0.01 10/3/uL (0.0-0.16); EOSINOPHILS 0 %; HEMATOCRIT 38.3 % (36.0-48.0); HEMOGLOBIN 12.2 g/dL (12.0-16.0); IMMATURE GRANULOCYTES 0.4 %; IMMATURE GRANULOCYTES ABSOLUTE 0.04 10/3/uL (0.0-0.11); LYMPHOCYTES 13.6 %; LYMPHOCYTES ABSOLUTE 1.32 10/3/uL (0.67-4.30); MEAN CORPUS HGB CONC 31.9 g/dL (32.0-36.0); MEAN CORPUSCULAR HEMOGLOB 28.6 pg (26.0-34.0); MEAN CORPUSCULAR VOLUME 89.9 fL (80-100); MONOCYTES 7.5 %; MONOCYTES ABSOLUTE 0.73 10/3/uL (0.21-1.20); NEUTROPHILS 78.4 %; NEUTROPHILS ABSOLUTE 7.63 10/3/uL (2.02-8.40); PLATELET COUNT 256 10/3/uL (150-400); RBC DISTRIBUTION WIDTH 14.9 % (12.0-16.0); RED CELL COUNT 4.26 10/6/uL (4.0-5.6); WHITE BLOOD CELLS 9.7 10/3/uL (4.5-10.5)
[2016-11-25 06:21] LABS: MANUAL DIFF NO %
[2016-11-25 06:40] LABS: BUN (BLOOD UREA NITROGEN) 17 MG/DL (6-23); CALCIUM, SERUM 9.1 MG/DL (8.5-10.4); CHLORIDE, SERUM 102 MMOL/L (96-112); CO2 (CARBON DIOXIDE) 34 MMOL/L (24-34); GFR AFRICAN AMERICAN 147 ML/MIN (>=60); GFR NON AFRICAN AMERICAN 127 ML/MIN (>=60); GLUCOSE, SERUM 88 MG/DL (60-99); POTASSIUM, SERUM 4.2 MMOL/L (3.5-5.3); SODIUM, SERUM 139 MMOL/L (135-148)
[2016-11-25 19:27] LABS: CPK 72 U/L (0-200); TROPONIN I <0.02 NG/ML (<0.05)
[2016-11-25 19:28] LABS: CK-MB < 0.5 NG/ML
[2016-11-25 21:25] LABS: CARBOXYHEMOGLOBIN 1.1 % (0-3); DEVICE NC; HCO3 (ACTUAL BICARBONATE) 25.5 MEQ/L (23-27); HEMOBLOGIN CONTENT 13.8 G/DL (12-16); INSTRUMENT SERIAL # 8083; METHEMOGLOBIN 0.2 % (0-3); O2 CONTENT 18.1 VOL% (18-24); OPERATOR ID 33449; PCO2 (CO2 TENSION) 29 MMHG (35-45); PO2 (O2 TENSION) 63 MMHG (79-93); SAMPLE Arterial; pH 7.56 (7.37-7.43)
[2016-11-26 06:40] LABS: BASOPHILS 0.2 %; BASOPHILS ABSOLUTE 0.02 10/3/uL (0.0-0.16); EOSINOPHILS ABSOLUTE 0.09 10/3/uL (0.0-0.53); HEMATOCRIT 36.7 % (36.0-48.0); HEMOGLOBIN 11.8 g/dL (12.0-16.0); IMMATURE GRANULOCYTES 1.1 %; LYMPHOCYTES 16.3 %; LYMPHOCYTES ABSOLUTE 1.53 10/3/uL (0.67-4.30); MEAN CORPUS HGB CONC 32.2 g/dL (32.0-36.0); MEAN CORPUSCULAR HEMOGLOB 28.9 pg (26.0-34.0); MEAN PLATELET VOLUME 9.4 fL (9.2-13.0); MONOCYTES 9.2 %; MONOCYTES ABSOLUTE 0.87 10/3/uL (0.21-1.20); NEUTROPHILS 72.2 %; PLATELET COUNT 231 10/3/uL (150-400); RBC DISTRIBUTION WIDTH 15.1 % (12.0-16.0); RED CELL COUNT 4.08 10/6/uL (4.0-5.6); WHITE BLOOD CELLS 9.4 10/3/uL (4.5-10.5)
[2016-11-26 06:41] LABS: MANUAL DIFF NO %
[2016-11-26 06:54] LABS: CALCIUM, SERUM 8.7 MG/DL (8.5-10.4); CHLORIDE, SERUM 102 MMOL/L (96-112); CO2 (CARBON DIOXIDE) 32 MMOL/L (24-34); CREATININE 0.69 MG/DL (0.55-1.02); GFR AFRICAN AMERICAN 112 ML/MIN (>=60); GFR NON AFRICAN AMERICAN 97 ML/MIN (>=60); PHOSPHORUS, SERUM 3.7 MG/DL (2.5-4.5); SODIUM, SERUM 139 MMOL/L (135-148)
[2016-11-26 06:55] LABS: BUN (BLOOD UREA NITROGEN) 23 MG/DL (6-23); GLUCOSE, SERUM 110 MG/DL (60-99); POTASSIUM, SERUM 3.3 MMOL/L (3.5-5.3)
[2016-11-27 07:01] LABS: BASOPHILS 0.1 %; BASOPHILS ABSOLUTE 0.01 10/3/uL (0.0-0.16); EOSINOPHILS ABSOLUTE 0.28 10/3/uL (0.0-0.53); HEMATOCRIT 37.2 % (36.0-48.0); HEMOGLOBIN 11.8 g/dL (12.0-16.0); IMMATURE GRANULOCYTES 1.1 %; LYMPHOCYTES 19.6 %; LYMPHOCYTES ABSOLUTE 1.84 10/3/uL (0.67-4.30); MEAN CORPUS HGB CONC 31.7 g/dL (32.0-36.0); MEAN CORPUSCULAR HEMOGLOB 28.5 pg (26.0-34.0); MEAN CORPUSCULAR VOLUME 89.9 fL (80-100); MEAN PLATELET VOLUME 9.8 fL (9.2-13.0); MONOCYTES 10.1 %; MONOCYTES ABSOLUTE 0.95 10/3/uL (0.21-1.20); NEUTROPHILS 66.1 %; NEUTROPHILS ABSOLUTE 6.22 10/3/uL (2.02-8.40); PLATELET COUNT 233 10/3/uL (150-400); RBC DISTRIBUTION WIDTH 15.1 % (12.0-16.0); RED CELL COUNT 4.14 10/6/uL (4.0-5.6); WHITE BLOOD CELLS 9.4 10/3/uL (4.5-10.5)
[2016-11-27 07:06] LABS: MANUAL DIFF NO %
[2016-11-27 08:05] LABS: CALCIUM, SERUM 8.5 MG/DL (8.5-10.4); CHLORIDE, SERUM 104 MMOL/L (96-112); CO2 (CARBON DIOXIDE) 30 MMOL/L (24-34); CREATININE 0.38 MG/DL (0.55-1.02); GFR AFRICAN AMERICAN 136 ML/MIN (>=60); GFR NON AFRICAN AMERICAN 118 ML/MIN (>=60); GLUCOSE, SERUM 97 MG/DL (60-99); PHOSPHORUS, SERUM 3.4 MG/DL (2.5-4.5); POTASSIUM, SERUM 3.7 MMOL/L (3.5-5.3); SODIUM, SERUM 138 MMOL/L (135-148)
[2016-11-27 08:06] LABS: BUN (BLOOD UREA NITROGEN) 18 MG/DL (6-23)
[2016-11-27] MEDS ORDERED: DOCUSOFT S100 MG PO (16:02)
[2017-01-19] MEDS ORDERED: VALIUM10 MG PO (09:04)
[2017-01-19] MEDS ORDERED: LEVAQUIN750 MG PO (09:05)
[2017-03-03] MEDS ORDERED: MSCONT15 PO (15:52)
[2017-03-03] MEDS ORDERED: V5 PO (15:53)
[2017-03-03] MEDS ORDERED: OXYCOD PO (15:53)
[2017-03-03] MEDS ORDERED: NEUR800 PO (15:54)
[2017-03-03] MEDS ORDERED: HALF81 PO (15:54)
[2017-03-03] MEDS ORDERED: SINGULAIR1 PO (15:54)
[2017-03-03] MEDS ORDERED: LIPITOR40 PO (15:54)
[2017-03-03] MEDS ORDERED: BACDS PO (15:55)
[2017-03-03] MEDS ORDERED: P10 PO (15:55)
[2017-03-03] MEDS ORDERED: PROZAC40 MG PO (15:55)
[2017-03-03] MEDS ORDERED: PLAVIX PO (15:56)
== END 2016-11-27 16:26 | disposition home or self-care (01) | DRG 208 ==
LOC: ER 20:56 → MIC 21:58 → 2SO 11-26 16:47
PROVIDERS: Emergency Medicine; Hospitalist; Internal Medicine Critical Care Medicine; Internal Medicine Pulmonary Disease
PROC: 0BH17EZ Insertion of Endotracheal Airway into Trachea, Via Natural or Artificial Opening (ICD-10-PCS; principal; 2016-11-20)
PROC: 5A1945Z Respiratory Ventilation, 24-96 Consecutive Hours (ICD-10-PCS; 2016-11-20)
DX: J96.21 Acute and chronic respiratory failure with hypoxia (principal); J44.1 Chronic obstructive pulmonary disease with (acute) exacerbation; D68.0 Von Willebrand disease; Z99.81 Dependence on supplemental oxygen; I50.32 Chronic diastolic (congestive) heart failure; I11.0 Hypertensive heart disease with heart failure; G89.4 Chronic pain syndrome; G43.909 Migraine, unspecified, not intractable, without status migrainosus; F19.10 Other psychoactive substance abuse, uncomplicated; G47.33 Obstructive sleep apnea (adult) (pediatric); G25.81 Restless legs syndrome; F44.9 Dissociative and conversion disorder, unspecified; F17.210 Nicotine dependence, cigarettes, uncomplicated; Z79.82 Long term (current) use of aspirin; Z88.5 Allergy status to narcotic agent; Z88.8 Allergy status to other drugs, medicaments and biological substances; Z95.0 Presence of cardiac pacemaker; I25.2 Old myocardial infarction; Z95.5 Presence of coronary angioplasty implant and graft; Z86.718 Personal history of other venous thrombosis and embolism; Z91.19 Patient's noncompliance with other medical treatment and regimen
CPT/HCPCS: 31500; 31720; 36600; 71010; 71020; 80048; 80053; 82140; 82330; 82550; 82553; 82803; 82805; 82947; 82962; 83735; 84100; 84132; 84134; 84145; 84295; 84439; 84443; 84484; 85014; 85025; 85610; 85730; 87040; 87070; 87077; 87186; 87205; 87641; 93005; 94002; 94003; 94640; 94644; 94660; 94667; 94668; 96374; 96375; 99291; A9270-GY; C1894; C9113; J0330; J0360; J2920; J2930; J3010; P9045